=== PATIENT | male | born 1970 | race Caucasian/White ===

== ENCOUNTER 2024-06-25 03:36 | Emergency (ER) | payer SELFPAY ==
[~2024-06-25] VITALS: Ht 160 cm; Wt 70.0 kg
[2024-06-25 03:43] VITALS: BP 163/94; RESP 24; TEMP 98.6
[2024-06-25 03:47] VITALS: PULSE 108; O2SAT 98
[2024-06-25] MEDS ORDERED: HYDR10TA34 MT (15:20)
== END 2024-06-25 10:59 | disposition left against medical advice (07) ==
LOC: ER 03:36
DX: F41.9 Anxiety disorder, unspecified (principal); I49.9 Cardiac arrhythmia, unspecified; Z53.21 Procedure and treatment not carried out due to patient leaving prior to being seen by health care provider
CPT/HCPCS: 93005

== ENCOUNTER 2024-06-25 10:56 | Emergency (ER) | payer SELFPAY ==
[~2024-06-25] VITALS: Ht 170.2 cm; Wt 68.0 kg
[2024-06-25 11:08] VITALS: BP 145/87; PULSE 100; RESP 20; TEMP 98.4; O2SAT 98
[2024-06-25 11:52] LABS: BASOPHILS % 0.3 % (0.0-2.0); EOSINOPHILS % 0.1 % (0.0-5.0); HEMATOCRIT. 42.4 % (42.0-52.0); LYMPHOCYTES % 7.2 % (20.0-50.0); MEAN CORPUSCULAR HEMOGLOBIN 33.5 pg (28.0-32.0); MEAN CORPUSCULAR HGB CONC 35.5 g/dL (31.0-37.0); MEAN CORPUSCULAR VOLUME 94.4 fL (80.0-94.0); MEAN PLATELET VOLUME 7.8 fl (7.4-10.4); NEUTROPHILS % 87.4 % (40.0-76.0); PLATELET 293 x1000/uL (130-400); RED BLOOD CELL COUNT 4.49 mill/uL (4.7-6.1); RED CELL DISTRIBUTION WIDTH 12.8 % (11.6-14.6)
[2024-06-25 12:04] LABS: CHLORIDE 105 mEq/L (98-107); POTASSIUM 3.7 mEq/L (3.5-5.1)
[2024-06-25 12:05] LABS: CARBON DIOXIDE 29 mEq/L (21-32); SODIUM 139 mEq/L (136-145)
[2024-06-25 12:06] LABS: CALCIUM 10.7 mg/dL (8.7-10.4)
[2024-06-25 12:11] LABS: CREATININE 0.8 mg/dL (0.6-1.3); GLUCOSE 111 mg/dL (70-105); TROPONIN I HIGH SENSITIVITY 5 ng/L (3.0-53); UREA NITROGEN BLOOD 10 mg/dL (9-23)
[2024-06-25 12:32] LABS: PARTIAL THROMBOPLASTIN TIME 25.9 sec (23.4-31.0); PROTHROMBIN TIME 10.9 sec (9.6-11.0)
[2024-06-25] MEDS ORDERED: LORAZEPAM 1MG TABLET PO ONE (12:45)
[2024-06-25] MEDS ORDERED: HYDR10TA34 MT (15:20)
== END 2024-06-25 16:40 | disposition home or self-care (01) ==
LOC: ER 10:56
DX: F41.9 Anxiety disorder, unspecified (principal); M25.571 Pain in right ankle and joints of right foot; I49.9 Cardiac arrhythmia, unspecified; Z00.00 Encounter for general adult medical examination without abnormal findings
CPT/HCPCS: 36415; 71045; 73610; 80048; 84484; 85025; 93005; 99285